=== PATIENT | male | born 1960 | race Caucasian/White ===

== ENCOUNTER 2018-08-09 08:35 | Outpatient (CLI) | payer BC ==
[~2018-08-09] VITALS: Ht 190.5 cm; Wt 99.5 kg
--- NOTE | ~2018-08-09 | OP ---
PATIENT NAME: CLINT MURPHY MEDICAL RECORD: [id number] :56 LOCATION:D.[facility] ADMISSION DATE: SURGEON: FELICIANO HAGER MD DATE OF OPERATION: 08/09/2018 PROCEDURES: 1. Left heart catheterization. 2. Selective coronary angiography. 3. Left ventriculogram. 4. Four-vessel vertebral and carotid angiography. INDICATION: Shortness of breath, dyspnea on exertion, chest pain compatible with angina, syncope. PROCEDURE IN DETAIL: After informed consent was obtained and after a detailed description of risks, benefits as well as alternative therapies, the patient elected to proceed with angiogram. The right femoral area was prepped and draped in normal sterile fashion. Right femoral artery was cannulated via modified Seldinger technique with placement of 5-Yakut sheath. All catheters exchanged through this sheath. FINDINGS: The left ventriculogram was performed in standard 30-degree COYLE view, reveals good cardiac wall motion throughout all segments. Overall ejection fraction 55%. SELECTIVE CORONARY ANGIOGRAPHY: Left main, left anterior descending, left circumflex, right coronary artery are all smooth-walled vessels with no angiographic evidence of coronary artery disease. Four-vessel carotid vertebral angiography was performed with subselection of each subclavian as well as the left carotid. FINDINGS: Right side: The common internal and external carotids as well as vertebral artery had no significant disease. Left side: The common internal and external carotid as well as vertebral artery had no significant disease. OVERALL IMPRESSION: 1. No significant coronary artery disease is present. 2. Normal left ventricular systolic function. 3. No significant carotid vascular disease is present. TRANSINT:[id number] Voice Confirmation ID: [id number] DOCUMENT ID: [id number] FELICIANO HAGER MD at 1235 CC: PRISCLILA MONTERO MD [id number] DICTATION DATE: 08/09/18 1113 SANDBLASTING SUPERVISOR: 08/09/18 1125 REG [facility] [address] [place] [address]
--- NOTE | ~2018-08-09 | HEMODYNAMI ---
PATIENT:CLINT MURPHY MEDICAL RECORD: [id number] : 56 LOCATION:[facility] ADMISSION DATE: 08/09/18 Generatedon:08/09/201811:11 Patient name: CLINT MURPHY Patient #: [id number] SSN: : Date of study: 08/09/2018 Page: Of Hemodynamic Procedure Report Patient Data Patient Demographics Procedure consent was obtained First Name: CLINT Gender: Male Last Name: JEFFREY : 1960 Middle Initial: EDWARD Age: 58 year(s) Patient #: [id number] Race: Unknown Additional ID: [id number] Contact details [address]: [address] [place] [address] State: [place] City: [place] Zip code: [address] Admission Admission Data Admission Date: 08/09/2018 Admission Time: 8:35 Procedure Procedure Types Cath Procedure Diagnostic Procedure LHC LHC w/Coronaries Peripheral Cath Diagnostic Procedure Manager Orange Peripheral Procedures Four Vessel Arteriogram Procedure Description Procedure Date Procedure Date: 08/09/2018 Procedure Start Time: 11:01 Procedure End Time: 11:09 Procedure Staff Name Function Shad Torres MD Performing Physician Ashley Hernández RT Monitor Nita Ferrer RT Scrub Didier Parks RN Nurse Procedure Data Cath Procedure Fluoroscopy Diagnostic fluoroscopy Total fluoroscopy Time: 2.1 time: 2.1 min min Diagnostic fluoroscopy Total fluoroscopy dose: 559 dose: 559 mGy mGy Contrast Material Contrast Material Type Amount (ml) Isovue 300 82 Entry Location Entry Primary Successful Side Size Upsize Upsize Entry Closure Succes sful Closure Location (Fr) 1 (Fr) 2 (Fr) Remarks Device Remarks Femoral Right 5 Fr Exoseal artery Estimated blood loss: 10 ml Diagnostic catheters Device Type Used For End Catheter Placement MULTIPACK Pigtail 5 Fr Procedure catheter MULTIPACK JL 4.0 5Fr Procedure catheter MULTIPACK 3DRC 5Fr Procedure catheter DIAGNOSTIC AR2 MOD 5 Fr Procedure catheter ([id number]) Procedure Complications No complications Procedure Medications Medication Administration Route Dosage 0.9% NaCl I.V. 100 ml/hr Oxygen etCO2 Nasal cannula 2 l/min Heparin Flush Bag added to field 2 bags (1000units/500ml NS) Lidocaine 2% added to field 20 Versed I.V. 2 mg Fentanyl I.V. 100 mcg Hemodynamics Rest Heart Rate: 62 (bpm) Snapshots Pre Cath Intra NCS Post Cath Vital Signs Time Heart Resp SPO2 etCO2 NIBP (mmHg) Rhythm Pain Sedation Rate (ipm) (%) (mmHg) Status Level (bpm) 10:36:02 64 23 98 0 129/83(95) NSR 0 (11) 10(A) , No pain 10:40:08 61 13 100 38.2 135/86(100) NSR 0 (11) 10(A) , No pain 10:44:20 58 14 100 40.5 118/77(86) NSR 0 (11) 10(A) , No pain 10:48:24 57 19 100 38.2 118/81(99) NSR 0 (11) 10(A) , No pain 10:52:30 56 19 100 36.7 110/77(88) NSR 0 (11) 10(A) , No pain 10:56:33 57 15 100 23.2 117/73(86) NSR 0 (11) 9(A) , No pain 11:00:41 63 11 99 21 115/72(82) NSR 0 (11) 9(A) , No pain 11:04:49 69 14 100 14.2 116/70(83) NSR 0 (11) 9(A) , No pain 11:08:55 62 15 99 28.5 112/75(89) NSR 0 (11) 10(A) , No pain Medications Time Medication Route Dose Verified Delivered Reason Notes Eff ectiveness by by 10:37:47 0.9% NaCl I.V. 100 Didier Didier Per ml/hr Kasey Parks physician RN RN 10:37:58 Oxygen etCO2 2 Didier Didier Per Nasal l/min Kasey Parks physician cannula RN RN 10:38:10 Heparin Flush added 2 Didier Didier used for Bag to bags Kasey Parks procedure (1000units/500ml field RN RN NS) 10:38:20 Lidocaine 2% added 20ml Didier Didier for local to vial Lorigan Lorigan anesthetic field RN RN 10:59:27 Versed I.V. 2 mg Didier Didier for Lorigan Lorigan sedation RN RN 10:59:42 Fentanyl I.V. 100 Didier Didier for mcg Lorigan Lorigan sedation RN personal support worker Log Time Note 10:28:55 Ashley Edgar RT(R) sent for patient. Start room use. 10:28:56 Time tracking: Regular hours (M-F 7:00 - 5:00) 10:29:00 Plan of Care:Hemodynamics will remain stable., Cardiac rhythm will remain stable., Comfort level will be maintained., Respiratory function will remain adequate., Patient/ family verbilizes understanding of procedure., Procedure tolerated without complication., Recovers from procedure without complications.. 10:30:00 Patient received from Pre/Post Procedure Room to CCL 2 Alert and oriented. Tansferred to table in Supine position. 10:30:01 Warm blankets applied, and leo hugger turned on for patient comfort. 10:30:03 Correct patient and procedure confirmed by team. 10:30:05 Signed procedure consent form obtained from patient. 10:30:19 Snore? Yes 10:30:21 Sleep apnea? No 10:30:33 Dentures? No ? 10:34:47 ECG and BP/O2 sat monitors applied to patient. 10:34:48 Vital chart was started 10:34:52 Baseline sample Acquired. 10:34:54 Full Disclosure recording started 10:34:58 H&P Date Dictated: 08/09/2018 Within 30 days and on chart., H&P Addendum completed by physician on day of procedure. (MUST COMPLETE FOR ALL OUTPATIENTS). 10:35:00 Pre-procedure instructions explained to patient. 10:35:00 Pre-op teaching completed and patient verbalized understanding. 10:35:02 Family in waiting room. 10:35:03 Patient NPO since Midnight. 10:35:05 Is the patient allergic to Iodine/contrast media? No. 10:35:06 Was the patient premedicated? No 10:35:07 Is patient on blood thinner?No 10:37:47 0.9% NaCl 100 ml/hr I.V. was administered by Didier Parks RN; Per physician; 10:37:58 Oxygen 2 l/min etCO2 Nasal cannula was administered by Didier Lorigan RN; Per physician; 10:38:10 Heparin Flush Bag (1000units/500ml NS) 2 bags added to field was administered by Didier Parks RN; used for procedure; 10:38:20 Lidocaine 2% 20ml vial added to field was administered by Didier Parks RN; for local anesthetic; 10:39:11 Patient diabetic? No. 10:39:18 Baseline sample Acquired. 10:39:22 Rhythm: sinus rhythm 10:39:32 Previous problem with sedation/anesthesia? No ? 10:40:04 IV patent on arrival in left forearm with 0.9% NaCl at [facility]. 10:40:07 Lab results completed and on chart. 10:40:11 Right groin area was prepped with chlora-prep and draped in sterile fashion 10:40:13 Alarms reviewed by R. N. 10:40:13 Sharps counted by scrub and verified by R.N. 10:40:14 Physician paged 10:47:22 Zero performed for pressure channel P1 10:57:39 Physician arrived 10:57:39 --------ALL STOP TIME OUT------ 10:57:40 Final Timeout: patient, procedure, and site verified with staff and physician. All members of the team are in agreement. 10:57:43 Right groin site verified by team. 10:57:47 Physical assessment completed. ASA score P 2 - A patient with mild systemic disease as per Shad Torres MD. 10:57:51 Sedation plan: IV Moderate Sedation Medication:Versed, Fentanyl 10:59:27 Versed 2 mg I.V. was administered by Didier Parks RN; for sedation; 10:59:42 Fentanyl 100 mcg I.V. was administered by Didier Parks RN; for sedation; 11:01:09 Use device set Femoral Dx 11:01:11 Procedure started. 11:01:22 ACIST Syringe (98478) opened to sterile field. 11:01:22 Bag Decanter () opened to sterile field. 11:01:23 Medline Cath Pack ([id number]) opened to sterile field. 11:01:24 DIAGNOSTIC WIRE .035 260cm J wire (126223) opened to sterile field. 11:01:25 ACIST Hand Control (91449) opened to sterile field. 11:01:26 ACIST Manifold (13585) opened to sterile field. 11:01:26 DIAGNOSTIC Multipack 5Fr catheter set ([id number]) opened to sterile field. 11:01:28 Tegaderm 4 x 4 (1626W) opened to sterile field. 11:01:29 PERCUTANEOUS ENTRY 19GA needle opened to sterile field. 11:01:33 SHEATH Prelude 5Fr 0.035 ([id number]-7N-06-035) opened to sterile field. 11:01:39 Local anesthetic to right femoral artery with Lidocaine 2% by Shad Torres MD.INITIAL ACCESS ONLY 11:02:01 A 5 Fr sheath was inserted into the Right Femoral artery 11:02:57 A MULTIPACK Pigtail 5 Fr catheter was advanced over the wire and used for Procedure. 11:03:04 LV angiography performed. 11:03:17 EF : 50 % 11:03:21 Catheter removed. 11:04:48 A MULTIPACK JL 4.0 5Fr catheter was advanced over the wire and used for Procedure. 11:04:54 LCA angiography performed. 11:04:55 Catheter removed. 11:05:06 A MULTIPACK 3DRC 5Fr catheter was advanced over the wire and used for Procedure. 11:06:09 Bilateral carotid angiography performed. 11:06:45 Catheter removed. 11:07:08 A DIAGNOSTIC AR2 MOD 5 Fr catheter ([id number]) was advanced over the wire and used for Procedure. 11:07:11 RCA angiography performed. 11:07:16 EXOSEAL 5Fr (EX500) opened to sterile field. 11:07:38 Catheter removed. 11:07:47 Sheath removed intact; hemostasis achieved with Exoseal to the Right Femoral artery. 11:08:12 Procedure ended.(Physican Out) 11:08:21 Fluoroscopy time 02.10 minutes. 11:08:25 Fluoroscopy dose: 559 mGy 11:08:25 Flurop Dose total: 559 11:08:43 Contrast amount:Isovue 300 82ml. 11:08:44 Sharps counted by scrub and verified by R.N. 11:08:46 Insertion/operative site no bleeding no hematoma. 11:08:49 Post-op/insertion site Right Femoral artery dressed using a 4 x 4 and Tegaderm. 11:08:51 Post Procedure Pulses reassessed and unchanged 11:08:54 Post-procedure physical assessment completed. ASA score P 2 - A patient with mild systemic disease as per Shad Torres MD. 11:08:58 Post procedure rhythm: unchanged. 11:09:01 Estimated blood loss: 10 ml 11:09:03 Post procedure instruction explained to patient.Patient verbalizes understanding. 11:09:13 Procedure and supply charges have been captured, reviewed, submitted and are correct. 11:09:30 Procedure Complication : No complications 11::33 Vital chart was stopped 11::33 See physician's report for complete and final results. 11:09:35 Report given to Pre/Post Procedure Room. 11:09:38 Patient transfered to Pre/Post Procedure Room with Stretcher. 11:09:40 Procedure ended. 11:09:40 Full Disclosure recording stopped 11::53 End room use (Document Last) Device Usage Item Name Manufacture Quantity Catalog Number Hospital Part Current M inimal Lot# / Charge Number Stock Stock Serial# Code ACIST Syringe Acist 1 [id number] 185906 739430 622347 2 0 (06142) [employer] Bag Decanter Microtek 1 671969 52439 428094 5 (2001S) Medical Inc. Medline Cath Medline 1 [id number] 906334 85946 064096 5 Pack ([id number]) DIAGNOSTIC WIRE [place] 1 782171 886827 568395 964439 3 0 .035 260cm J wire (054911) ACIST Hand Acist 1 68433 643772 542676 542301 5 Control (14966) [employer] ACIST Manifold Acist 1 49048 467330 090684 824507 5 (71333) [employer] DIAGNOSTIC Cardinal 1 [id number] 635801 69389 733864 3 0 Multipack 5Fr Health catheter set ([id number]) Tegaderm 4 x 4 3M 1 1626W 512668 250609 628854 5 (1626W) PERCUTANEOUS Cook Medical 1 [id number] 566994 490760 5 ENTRY 19GA needle SHEATH Prelude Merit 1 CYR-7Q-22-035 859329 132159 605121 5 5Fr 0.035 Medical ([id number]-9K-70-035) MULTIPACK Cardinal 1 444357 5 Pigtail 5 Fr Health catheter MULTIPACK JL Cardinal 1 012780 5 4.0 5Fr Health catheter MULTIPACK 3DRC Cardinal 1 976635 5 5Fr catheter Health DIAGNOSTIC AR2 Cardinal 1 [id number] 240682 835872 147883 2 0 MOD 5 Fr Health catheter (726162W) EXOSEAL 5Fr Cardinal 1 EX500 201087 106120 931994 1 0 (EX500) Health Signature Audit [place] Stage Time Signature Unsigned Intra-Procedure 08/09/2018 Ashley Hernández 11:11:41 AM RT(R) Signatures Monitor : Ashley Hernández Signature : RT Date : Time : [address] [address]
[~2018-08-09 08:35] MED LIST: ADVIL PM CAPLET1 TAB PO; ATIVAN0.5 MG PO; DIFLUCAN200 MG PO; FLAGYL500 MG PO; HYDROCODON-ACE1 EAC7 PO; HYDROCODONE-APA1 TAB PO; LISINOPRIL10 MG PO; MED FOR ANXIETY; TOPROL XL50 MG PO; TYLENOL PM1 TAB; TYLENOL PM1 TAB PO; ZOFRAN ODT4 MG/UDTAB PO
[2018-08-09 09:06] VITALS: BP 132/80; Ht 190.5 cm; Wt 99.5 kg
[2018-08-09 09:37] LABS: BASOPHILS 0.3 % (0-2); EOSINOPHILS 2.6 % (0-7); HEMATOCRIT 36.7 % (42.0-54.0); IMMATURE GRANULOCYTES 0.2 % (0-5); LYMPHOCYTES 23.8 % (15-50); MCH 32.8 pg (26.0-34.0); MCHC 32.7 g/dL (31.0-37.0); MCV 100.3 fL (80.0-100.0); MEAN PLATELET VOLUME 9.5 fL (7.4-10.4); MONOCYTES 8.5 % (2-11); NEUTROPHILS 64.6 % (40-80); RBC 3.66 10x6/uL (4.20-6.10); RDW 14.9 % (11.5-14.5); WBC 10.2 10x3/uL (4.8-10.8)
[2018-08-09 09:42] LABS: PLATELET COUNT 371 10x3/uL (130-400)
[2018-08-09 09:53] LABS: ANION GAP 12.6 mmol/L (8-16); CALCIUM 9.2 mg/dL (8.5-10.1); CARBON DIOXIDE 26.9 mmol/L (21.0-32.0); CREATININE - SERUM 1.1 mg/dL (0.6-1.3); POTASSIUM - SERUM 4.5 mmol/L (3.5-5.1)
== END 2018-08-09 13:40 | disposition home or self-care (01) ==
LOC: D.CATH 08:35
PROVIDERS: Internal Medicine Interventional Cardiology
DX: R07.89 Other chest pain (principal); R06.00 Dyspnea, unspecified; R06.02 Shortness of breath; R55 Syncope and collapse; Z01.812 Encounter for preprocedural laboratory examination